=== PATIENT | female | born 2000 | race Caucasian/White ===

== ENCOUNTER 2020-08-02 16:12 | Emergency (ER) | payer OTHER ==
[2020-08-02] MEDS ORDERED: AMOXICILLIN 500 MG CAP PO STA (16:49)
[2020-08-02] MEDS ORDERED: dexAMETHasone 4 MG TAB PO STA (16:49)
--- NOTE | 2020-08-02 17:01 | ED ---
General Adult HPI - General Source: patient Mode of arrival: ambulatory Limitations: no limitations <Jimi Chew - Last Filed: 08/02/20 17:07> <Adelaide Guevara - Last Filed: 08/04/20 22:47> - General Chief complaint: ENT Stated complaint: ENT/Swelling in throat Time Seen by Provider: 08/02/20 16:32 - History of Present Illness Initial comments: 20-year-old female presents to the emergency room for a chief of sore throat. Patient states that for the past 5 days she has had a slight sore throat. States it is painful and difficult to swallow. She denies any difficulty handling oral secretions. She is able to eat and drink. She denies any difficulty opening her mouth. Denies fevers or chills. Denies neck stiffness or pain. States she does have congestion and a runny nose however denies cough. Patient saw her doctor earlier today who tested her for strep which was negative. A culture was sent which would take a few days according to patient. Patient was supposed to be started on antibiotics however these were apparently not sent to her pharmacy . Unfortunately the doctor's office closed at 1 pm and patient wanted to start on the antibiotics that she came to the emergency room. Patient denies any chance of whatsoever.Patient has no other complaints at this time including shortness of breath, chest pain, abdominal pain, nausea or vomiting, headache, or visual changes. (Jimi Chew) - Related Data Previous Rx's Medication Instructions Recorded Amoxicillin 500 mg PO Q12HR #20 cap 08/02/20 Allergies Allergy/AdvReac Type Severity Reaction Status Date / Time No Known Allergies Allergy Verified 08/02/20 16:31 Review of Systems ROS Other: All systems not noted in ROS Statement are negative. <Jimi Chew - Last Filed: 08/02/20 17:07> ROS Other: All systems not noted in ROS Statement are negative. <Adelaide Guevara - Last Filed: 08/04/20 22:47> ROS Statement: Those systems with pertinent positive or pertinent negative responses have been documented in the HPI. Past Medical History Past Medical History: No Reported History History of Any Multi-Drug Resistant Organisms: None Reported Past Surgical History: No Surgical Hx Reported Past Psychological History: No Psychological Hx Reported Smoking Status: Current every day smoker, Vaper Past Alcohol Use History: None Reported Past Drug Use History: Marijuana <Jimi Chew - Last Filed: 08/02/20 17:07> General Exam Limitations: no limitations General appearance: alert Head exam: Present: atraumatic Eye exam: Present: normal appearance, PERRL, EOMI. Absent: scleral icterus ENT exam: Present: normal exam, mucous membranes moist, TM's normal bilaterally, normal external ear exam. Absent: normal oropharynx (Slightly erythematous however no tonsillar exudates bilaterally. Uvula midline. No evidence of peritonsillar abscess. Oropharynx is patent.) Neck exam: Present: normal inspection, full ROM. Absent: tenderness, meningismus, lymphadenopathy Respiratory exam: Present: normal lung sounds bilaterally. Absent: respiratory distress Cardiovascular Exam: Present: regular rate, normal rhythm, normal heart sounds GI/Abdominal exam: Present: soft, normal bowel sounds. Absent: distended, tenderness, guarding, rebound, rigid Neurological exam: Present: alert <Jimi Chew - Last Filed: 08/02/20 17:07> Course Vital Signs 08/02/20 08/02/20 16:27 17:15 Temperature 98.6 F 98.0 F Pulse Rate 89 81 Respiratory 18 16 Rate Blood Pressure 106/60 116/78 O2 Sat by Pulse 100 98 Oximetry Medical Decision Making <Jimi Chew - Last Filed: 08/02/20 17:07> <Adelaide Guevara - Last Filed: 08/04/20 22:47> - Medical Decision Making Vitals are stable. Patient slightly anxious however is well-appearing. Handling oral secretions, no drooling trismus or tripoding. No respiratory distress. Patient able to swallow pills without difficulty. Uvula midline. Patient was given amoxicillin as well as a dose of Decadron. She will follow-up with her doctor for culture results. She will return here for any worsening symptoms. (Jimi Chew) I was available for consultation in the emergency department. The history and physical exam were done by the midlevel provider. I was consulted for this patients care. I reviewed the case with the midlevel provider and based on their presentation of the patient, I agree with the assessment, medical decision making and plan of care as documented. Chart was dictated using [employer] dictation software. Attempts were made to correct any dictation errors however some typographical errors may persist. Patient was seen during a national state of emergency due to the Covid-19 pandemic. (Adelaide Guevara) Disposition Is patient prescribed a controlled substance at d/c from ED?: No Time of Disposition: 17:00 <Jimi Chew - Last Filed: 08/02/20 17:07> <Adelaide Guevara - Last Filed: 08/04/20 22:47> Clinical Impression: Pharyngitis Disposition: HOME SELF-CARE Condition: Good Instructions (If sedation given, give patient instructions): Pharyngitis (ED) Additional Instructions: Please follow-up with your doctor in one to 2 days. In the meantime take antibiotic as directed. If you have any worsening symptoms return to the emergency room. Prescriptions: Amoxicillin 500 mg PO Q12HR #20 cap Referrals: Richard Marmolejo MD [Primary Care Provider] - 1-2 days
[2020-08-02 17:16] VITALS: BP 116/78; PULSE 81; RESP 16; TEMP 98
== END 2020-08-02 17:15 | disposition home or self-care (01) ==
LOC: EC 16:12
DX: J02.9 Acute pharyngitis, unspecified (principal); F17.290 Nicotine dependence, other tobacco product, uncomplicated
CPT/HCPCS: 99283; J8540

== ENCOUNTER 2020-08-05 06:41 | Emergency (ER) | payer OTHER ==
[2020-08-05 06:47] VITALS: BP 93/52; PULSE 94; RESP 18; TEMP 98.1
[2020-08-05] MEDS ORDERED: ACET/COD 300 MG/30 MG STARTER PACK 6 TAB BTL PO STA (06:56)
--- NOTE | 2020-08-05 07:04 | ED ---
Back Pain HPI - General Chief Complaint: Back Pain/Injury Stated Complaint: Back Pain Time Seen by Provider: 08/05/20 06:48 Source: patient, family Limitations: no limitations - History of Present Illness Initial Comments: 20-year-old female presenting today for chief complaint of low back pain. Patient states she has had chronic back pain since the sixth grade she states she states that it occurs everyday. pt statse that last night it was increased. she took ibuprofen 400mg and it seemed to help and she was able to go to sleep. this morning she wokeup and the back pain was still presesnt. mother states she has complained of back pain frequently but the patient recently has been signed up for medicaid. pt denies falls, injury, fevers, loss of bowel bladder control, urinary symptoms, nausae, vomiting, chest pain, dyspnea, denies loss of bowel bladder control, urinary retention, weakness of the LE, sensation deficits of the LE. Patient denies abdominal pain, . Pt denies urinary symptoms such as frequency, dysuria, or hematuria - Related Data Home Medications Medication Instructions Recorded Confirmed Ibuprofen [Advil] 400 mg PO Q8HR PRN 08/05/20 08/05/20 Ibuprofen [Motrin Ib] 400 mg PO Q8H PRN 08/05/20 08/05/20 Previous Rx's Medication Instructions Recorded Amoxicillin 500 mg PO Q12HR #20 cap 08/02/20 Ibuprofen 600 mg PO Q8H PRN 7 Days #21 tab 08/05/20 Allergies Allergy/AdvReac Type Severity Reaction Status Date / Time No Known Allergies Allergy Verified 08/05/20 07:23 Review of Systems ROS Statement: Those systems with pertinent positive or pertinent negative responses have been documented in the HPI. ROS Other: All systems not noted in ROS Statement are negative. Past Medical History Past Medical History: No Reported History History of Any Multi-Drug Resistant Organisms: None Reported Past Surgical History: No Surgical Hx Reported Past Psychological History: No Psychological Hx Reported Smoking Status: Current every day smoker, Vaper Past Alcohol Use History: None Reported Past Drug Use History: Marijuana General Exam - General Exam Comments Initial Comments: General: The patient is awake and alert, in no distress Eye: +3 mm pupils are equal, round and reactive to light, extra-ocular movements are intact. No nystagmus. There is normal conjunctiva bilaterally. No signs of icterus. Ears, nose, mouth and throat: There are moist mucous membranes and no oral lesions. Neck: The neck is supple, there is no tenderness or JVD. Cardiovascular: There is a regular rate and rhythm. No murmur, rub or gallop is appreciated. Respiratory: Lungs are clear to auscultation, respirations are non-labored, breath sounds are equal. No wheezes, stridor, rales, or rhonchi. Gastrointestinal: Soft, non-distended, non-tender abdomen without masses or organomegaly noted. There is no rebound or guarding present. No CVA tenderness. Musculoskeletal: Some mild midline tenderness to palpation of the lower thoracic, upper lumbar spine, some pareaspinal tenderness appreciated. Normal ROM, no tenderness. Strength 5/5. Sensation intact. Radial pulses equal bilaterally 2+. Neurological: A&O x 3. CN II-XII intact grossly, There are no obvious motor or sensory deficits. Coordination appears grossly intact. Speech is normal. Skin: Skin is warm and dry and no rashes or lesions are noted. Psychiatric: Cooperative, appropriate mood & affect, normal judgment. Limitations: no limitations Course Vital Signs 08/05/20 06:46 Temperature 98.1 F Pulse Rate 94 Respiratory 18 Rate Blood Pressure 93/52 O2 Sat by Pulse 100 Oximetry - Reevaluation(s) Reevaluation #1: pt refused blood work, i went in expressing importance of lab work. pt continued to refuse. 08/05/20 08:15 Medical Decision Making - Medical Decision Making Pt refused labs. pt afebrile. no known hx of cancer. UA contaminated. Abdominal pain benign, denies urinary symptoms. Denies hx of stones, no blood in urine. Culture pending. XR (-). Pt has reproducible pain to palpation on exam, consistent with MSK pain. Pt neurovascularly intact. Pt sleeping on reevaluation after toradol and the xanax. discussed with patient and mother importance of f/u for routine labs, MRI for chronic back pain. pt provided tylenol #3 starter pack and ibuprofen. recommend return for worsening symptoms. Dr Stephens agreeable to care plan. - Lab Data Lab Results 08/05/20 08/05/20 Range/Units 06:59 06:59 Urine Color Yellow Urine Appearance Cloudy H (Clear) Urine pH 8.5 H (5.0-8.0) Ur Specific [place] 1.022 (1.001-1.035) Urine Protein Trace H (Negative) Urine Glucose (UA) Negative (Negative) Urine Ketones Negative (Negative) Urine Blood Negative (Negative) Urine Nitrite Negative (Negative) Urine Bilirubin Negative (Negative) Urine Urobilinogen <2.0 (<2.0) mg/dL Ur Leukocyte Esterase Small H (Negative) Urine WBC 16 H (0-5) /hpf Ur Squamous Epith Cells 58 H (0-4) /hpf Urine Bacteria Rare H (None) /hpf Urine Mucus Rare H (None) /hpf Urine HCG, Qual Not Detected (Not Detectd) Disposition Clinical Impression: Low back pain Disposition: HOME SELF-CARE Condition: Good Instructions (If sedation given, give patient instructions): Acute Low Back Pain (ED), Chronic Back Pain (DC), Lower Back Exercises (ED) Additional Instructions: Please use medication as discussed. Please follow-up with family doctor in the next 2 days, recommend outpatient MRI and laboratory studies. Urine culture is pending. Please return to emergency room if the symptoms increase or worsen or for any other concerns. Prescriptions: Ibuprofen 600 mg PO Q8H PRN 7 Days #21 tab PRN Reason: Pain Is patient prescribed a controlled substance at d/c from ED?: No Referrals: Richard Marmolejo MD [Primary Care Provider] - 1-2 days Time of Disposition: 09:01
[2020-08-05 07:22] LABS: Appearance,Urine Cloudy (Clear); Bacteria,Urine Rare /hpf; Bilirubin,Urine Negative (Negative); Blood,Urine Negative (Negative); Color,Urine Yellow; Glucose,Urine (UA) Negative (Negative); Ketones,Urine Negative (Negative); Leukocyte Esterase,Urine Small (Negative); Mucus,Urine Rare /hpf; Nitrite,Urine Negative (Negative); PH, Urine 8.5 (5.0-8.0); Protein,Urine Trace (Negative); Specific Gravity,Urine 1.022 (1.001-1.035); Squamous Epithelial Cell,Urine 58 /hpf (0-4); Urobilinogen,Urine <2.0 mg/dL (<2.0); WBC,Urine 16 /hpf (0-5)
--- NOTE | 2020-08-05 07:50 | XR ---
EXAMINATION TYPE: XR lumbar spine 2 or 3V DATE OF EXAM: 08/05/2020 CLINICAL HISTORY: Low back pain for years TECHNIQUE: Frontal and lateral images of the lumbar spine are obtained. COMPARISON: None FINDINGS: There are 5 lumbar type vertebral bodies identified. The lumbar spine shows satisfactory alignment without evidence of acute fracture or dislocation. Vertebral body heights and disk space he ights are within normal limits. The overlying soft tissue appears unremarkable. IMPRESSION: As above.
--- NOTE | 2020-08-05 07:54 | XR ---
EXAMINATION TYPE: XR thoracic spine complete DATE OF EXAM: 08/05/2020 CLINICAL HISTORY: Mid back pain. TECHNIQUE: Frontal, lateral, and swimmer's view of thoracic spine are obtained. COMPARISON: None. FINDINGS: Thoracic spine show satisfactory alignment without evidence of acute fracture or dislocatio n. Vertebral body heights and disc space heights are preserved. Visualized ribs are intact bilateral ly. IMPRESSION: As above.
[2020-08-05] MEDS ORDERED: ALPRAZolam 0.5 MG TAB PO STA (08:15)
[2020-08-05] MEDS ORDERED: KETOROLAC 15 MG/ML 1 ML VIAL IM STA (08:15)
== END 2020-08-05 09:19 | disposition home or self-care (01) ==
LOC: EC 06:41
DX: G89.29 Other chronic pain (principal); M54.5 Low back pain; R10.9 Unspecified abdominal pain; F17.290 Nicotine dependence, other tobacco product, uncomplicated
CPT/HCPCS: 81001; 81025; 72072; 72100; 99283; 96372; J1885

== ENCOUNTER 2020-08-05 18:00 | Emergency (ER) | payer OTHER ==
[2020-08-05 18:19] VITALS: RESP 18
[2020-08-05] MEDS ORDERED: LORazepam 2 MG/ML INJ IV STA (19:33)
[2020-08-05] MEDS ORDERED: KETOROLAC 15 MG/ML 1 ML VIAL IVP STA (19:34)
[2020-08-05 20:03] LABS: Appearance,Urine Cloudy (Clear); Bacteria,Urine Rare /hpf; Bilirubin,Urine Negative (Negative); Blood,Urine Negative (Negative); Budding Yeast,Urine Occasional /hpf; Color,Urine Yellow; Glucose,Urine (UA) Negative (Negative); Ketones,Urine 1+ (Negative); Leukocyte Esterase,Urine Small (Negative); Mucus,Urine Few /hpf; Nitrite,Urine Negative (Negative); Protein,Urine 1+ (Negative); RBC,Urine 16 /hpf (0-5); Specific Gravity,Urine 1.034 (1.001-1.035); Squamous Epithelial Cell,Urine 45 /hpf (0-4); WBC,Urine 21 /hpf (0-5)
[2020-08-05 20:11] LABS: Basophils # (A) 0.1 k/uL (0-0.2); Basophils % (A) 1 %; Eosinophils # (A) 0.1 k/uL (0-0.7); Eosinophils % (A) 1 %; HCT 40.4 % (34.0-46.0); HGB 14.1 gm/dL (11.4-16.0); Lymphocytes # (A) 1.4 k/uL (1.0-4.8); Lymphocytes % (A) 20 %; MCH 30.1 pg (25.0-35.0); MCHC 34.9 g/dL (31.0-37.0); MCV 86.3 fL (80.0-100.0); Mean Platelet Volume 7.7; Monocytes # (A) 0.4 k/uL (0-1.0); Monocytes % (A) 6 %; Neutrophils % (A) 70 %; Platelet Count 219 k/uL (150-450); RBC 4.68 m/uL (3.80-5.40); RDW 12.1 % (11.5-15.5); WBC 7.2 k/uL (4.0-11.0)
[2020-08-05 20:15] LABS: Amphetamine Screen,Urine Not Detected (NotDetected); Barbiturate Screen,Urine Not Detected (NotDetected); Benzodiazepines Screen,Urine Detected (NotDetected); Cocaine Screen,Urine Not Detected (NotDetected); Methadone Screen, Urine Not Detected (NotDetected); Opiate Screen,Urine Detected (NotDetected); Oxycodone Screen, Urine Not Detected (NotDetected); Phencyclidine Screen,Urine Not Detected (NotDetected); Tricyclic Antidepressant,Urine Not Detected (NotDetected); Urn Cannabinoid Scrn Detected (NotDetected)
[2020-08-05 20:47] LABS: ALT 10 U/L (4-34); AST 17 U/L (14-36); African American GFR (CKD) >90 (>60 ml/min/1.73 sqM); Albumin 3.6 g/dL (3.5-5.0); Alkaline Phosphatase 49 U/L (38-126); Anion Gap 4 mmol/L; Blood Urea Nitrogen 9 mg/dL (7-17); Calcium 8.8 mg/dL (8.4-10.2); Carbon Dioxide 26 mmol/L (22-30); Chloride 110 mmol/L (98-107); Glucose 102 mg/dL (74-99); Non-African American GFR(CKD) >90 (>60 ml/min/1.73 sqM); Potassium 3.8 mmol/L (3.5-5.1); Sodium 140 mmol/L (137-145); Total Bilirubin 0.7 mg/dL (0.2-1.3); Total Protein 6.4 g/dL (6.3-8.2)
--- NOTE | 2020-08-05 20:56 | CT ---
EXAMINATION TYPE: CT lumbar spine wo con DATE OF EXAM: 08/05/2020 COMPARISON: None HISTORY: Low back pain, no injury. CT DLP: 564.9 mGycm Automated exposure control for dose reduction was used. Images obtained from the level of T11-S2 vertebra without contrast. Lumbar vertebra have normal alignment. Disc spaces are fairly normal. Posterior elements are intact. There is no lumbar paraspinal mass. There is no compression fracture. The facet joints are intact. Th e sacroiliac joints are intact. IMPRESSION: Negative CT scan of the lumbar spine. No fracture.
[2020-08-05 21:47] VITALS: BP 110/54; PULSE 59
--- NOTE | 2020-08-05 22:04 | ED ---
General Adult HPI - General Chief complaint: Back Pain/Injury Stated complaint: revisit - back pain Time Seen by Provider: 08/05/20 19:28 Source: patient Mode of arrival: ambulatory Limitations: no limitations - History of Present Illness Initial comments: Patient is a 20-year-old female presenting to the emergency Department with complaints of low back pain that has been increasing over the past 2 days. Patient states she's had this pain for one year and "can no longer stand it." Patient was seen in the ER earlier today for same issue. Patient refused lab work then, she did have normal x-rays, given pain meds and was told this is muscle skeletal in nature. Patient states she went to a chiropractor and came back and is her pain is even worse. Patient is crying out, was laying in the floor in the triage [place], seems very anxious and panicky. She denies any fever or chills, no nausea or vomiting. No abdominal pain, she denies being . She denies any falls or trauma to her back. She denies history of kidney stones. She has no further complaints. - Related Data Previous Rx's Medication Instructions Recorded Amoxicillin 500 mg PO Q12HR #20 cap 08/02/20 Ibuprofen 600 mg PO Q8H PRN 7 Days #21 tab 08/05/20 Allergies Allergy/AdvReac Type Severity Reaction Status Date / Time No Known Allergies Allergy Verified 08/05/20 20:44 Review of Systems ROS Statement: Those systems with pertinent positive or pertinent negative responses have been documented in the HPI. ROS Other: All systems not noted in ROS Statement are negative. Past Medical History Past Medical History: No Reported History History of Any Multi-Drug Resistant Organisms: None Reported Past Surgical History: No Surgical Hx Reported Past Psychological History: No Psychological Hx Reported Smoking Status: Current every day smoker, Vaper Past Alcohol Use History: None Reported Past Drug Use History: Marijuana General Exam - General Exam Comments Initial Comments: GENERAL: Patient is nontoxic, seems very anxious, panicky, screaming out in her room, but then has periods of calm numbness, walking on her own to the restroom. HEAD: Atraumatic, normocephalic. EYES: Pupils equal round and reactive to light, extraocular movements intact, sclera anicteric, conjunctiva are normal. Eyelids were unremarkable. ENT: TMs normal, nares patent, oropharynx clear without exudates. Moist mucous membranes. NECK: Normal range of motion, supple without lymphadenopathy or JVD. LUNGS: Unlabored respirations. Breath sounds clear to auscultation bilaterally and equal. No wheezes rales or rhonchi. HEART: Regular rate and rhythm without murmurs, rubs or gallops. ABDOMEN: Soft, nontender, normoactive bowel sounds. No guarding, no rebound. No masses appreciated. : Deferred MUSCULOSKELETAL: Normal extremities with adequate strength and normal range of motion, no pitting or edema. No clubbing or cyanosis. She has no pain with palpation of the lower lumbar spine, paraspinals. She has full trunk range of motion. NEUROLOGICAL: Patient is alert and oriented x 3. Motor and sensory are also intact. Cranial nerves II through XII grossly intact. Symmetrical smile. Normal speech, normal gait. PSYCH: She seems very anxious, panicky. SKIN: Warm, Dry, normal turgor, no rashes or lesions noted. Limitations: no limitations Course Vital Signs 08/05/20 08/05/20 08/05/20 18:14 21:39 22:28 Temperature 97.7 F 98.2 F 97.9 F Pulse Rate 82 59 L Respiratory 18 18 Rate Blood Pressure 102/63 110/54 O2 Sat by Pulse 99 100 Oximetry Medical Decision Making - Medical Decision Making Patient is a 20-year-old female here for low back pain. She was here earlier today for same complaint. X-rays today showed no acute process, she refused blood work this morning. I did do labwork this time, no acute process, urine drug screen is positive for opiates, benzos and marijuana. She did receive Ativan at her previous visit. She is not . I do CT of her lumbar spine, this is negative. Patient has been crying all pain since she's been here. I gave her Ativan and Toradol today. She was resting comfortably. Patient seems depressed and very anxious and panicky. Patient was witnessed walking to restroom in no acute distress, interacting with other patients and seemed pain-free. Discussed with mother that she needs to follow up with her regular doctor concerning the depression and anxiety and also the continuous low back pain. Patient denies being suicidal or homicidal. She states she is depressed but does not want to speak to his psychiatric nurse. She already has pain medication at home. She can continue with this along with Tylenol. I did recommend Benadryl at nighttime to help with sleeping. Patient is stable for discharge. Return parameters were discussed with the mother and the patient both verbalized understanding. Case discussed Dr. Pacheco. - Lab Data Result diagrams: 08/05/20 20:03 08/05/20 20:03 Lab Results 08/05/20 08/05/20 08/05/20 Range/Units 19:55 19:55 20:03 WBC 7.2 (4.0-11.0) k/uL RBC 4.68 (3.80-5.40) m/uL Hgb 14.1 (11.4-16.0) gm/dL Hct 40.4 (34.0-46.0) % MCV 86.3 (80.0-100.0) fL MCH 30.1 (25.0-35.0) pg MCHC 34.9 (31.0-37.0) g/dL RDW 12.1 (11.5-15.5) % Plt Count 219 (150-450) k/uL MPV 7.7 Neutrophils % 70 % Lymphocytes % 20 % Monocytes % 6 % Eosinophils % 1 % Basophils % 1 % Neutrophils # 5.0 (1.3-7.7) k/uL Lymphocytes # 1.4 (1.0-4.8) k/uL Monocytes # 0.4 (0-1.0) k/uL Eosinophils # 0.1 (0-0.7) k/uL Basophils # 0.1 (0-0.2) k/uL Sodium (137-145) mmol/L Potassium (3.5-5.1) mmol/L Chloride (98-107) mmol/L Carbon Dioxide (22-30) mmol/L Anion Gap mmol/L BUN (7-17) mg/dL Creatinine (0.52-1.04) mg/dL Est GFR (CKD-EPI)AfAm (>60 ml/min/1.73 sqM) Est GFR (CKD-EPI)NonAf (>60 ml/min/1.73 sqM) Glucose (74-99) mg/dL Calcium (8.4-10.2) mg/dL Total Bilirubin (0.2-1.3) mg/dL AST (14-36) U/L ALT (4-34) U/L Alkaline Phosphatase (38-126) U/L Total Protein (6.3-8.2) g/dL Albumin (3.5-5.0) g/dL Urine Color Yellow Urine Appearance Cloudy H (Clear) Urine pH 8.0 (5.0-8.0) Ur Specific [place] 1.034 (1.001-1.035) Urine Protein 1+ H (Negative) Urine Glucose (UA) Negative (Negative) Urine Ketones 1+ H (Negative) Urine Blood Negative (Negative) Urine Nitrite Negative (Negative) Urine Bilirubin Negative (Negative) Urine Urobilinogen 4.0 (<2.0) mg/dL Ur Leukocyte Esterase Small H (Negative) Urine RBC 16 H (0-5) /hpf Urine WBC 21 H (0-5) /hpf Ur Squamous Epith Cells 45 H (0-4) /hpf Urine Bacteria Rare H (None) /hpf Urine Mucus Few H (None) /hpf Urine Yeast (Budding) Occasional H (None) /hpf Urine HCG, Qual Not Detected (Not Detectd) Urine Opiates Screen Detected H (NotDetected) Ur Oxycodone Screen Not Detected (NotDetected) Urine Methadone Screen Not Detected (NotDetected) Ur Propoxyphene Screen Not Detected (NotDetected) Ur Barbiturates Screen Not Detected (NotDetected) U Tricyclic Antidepress Not Detected (NotDetected) Ur Phencyclidine Scrn Not Detected (NotDetected) Ur Amphetamines Screen Not Detected (NotDetected) U Methamphetamines Scrn Not Detected (NotDetected) U Benzodiazepines Scrn Detected H (NotDetected) Urine Cocaine Screen Not Detected (NotDetected) U Marijuana (THC) Screen Detected H (NotDetected) 08/05/20 Range/Units 20:03 WBC (4.0-11.0) k/uL RBC (3.80-5.40) m/uL Hgb (11.4-16.0) gm/dL Hct (34.0-46.0) % MCV (80.0-100.0) fL MCH (25.0-35.0) pg MCHC (31.0-37.0) g/dL RDW (11.5-15.5) % Plt Count (150-450) k/uL MPV Neutrophils % % Lymphocytes % % Monocytes % % Eosinophils % % Basophils % % Neutrophils # (1.3-7.7) k/uL Lymphocytes # (1.0-4.8) k/uL Monocytes # (0-1.0) k/uL Eosinophils # (0-0.7) k/uL Basophils # (0-0.2) k/uL Sodium 140 (137-145) mmol/L Potassium 3.8 (3.5-5.1) mmol/L Chloride 110 H (98-107) mmol/L Carbon Dioxide 26 (22-30) mmol/L Anion Gap 4 mmol/L BUN 9 (7-17) mg/dL Creatinine 0.62 (0.52-1.04) mg/dL Est GFR (CKD-EPI)AfAm >90 (>60 ml/min/1.73 sqM) Est GFR (CKD-EPI)NonAf >90 (>60 ml/min/1.73 sqM) Glucose 102 H (74-99) mg/dL Calcium 8.8 (8.4-10.2) mg/dL Total Bilirubin 0.7 (0.2-1.3) mg/dL AST 17 (14-36) U/L ALT 10 (4-34) U/L Alkaline Phosphatase 49 (38-126) U/L Total Protein 6.4 (6.3-8.2) g/dL Albumin 3.6 (3.5-5.0) g/dL Urine Color Urine Appearance (Clear) Urine pH (5.0-8.0) Ur Specific [place] (1.001-1.035) Urine Protein (Negative) Urine Glucose (UA) (Negative) Urine Ketones (Negative) Urine Blood (Negative) Urine Nitrite (Negative) Urine Bilirubin (Negative) Urine Urobilinogen (<2.0) mg/dL Ur Leukocyte Esterase (Negative) Urine RBC (0-5) /hpf Urine WBC (0-5) /hpf Ur Squamous Epith Cells (0-4) /hpf Urine Bacteria (None) /hpf Urine Mucus (None) /hpf Urine Yeast (Budding) (None) /hpf Urine HCG, Qual (Not Detectd) Urine Opiates Screen (NotDetected) Ur Oxycodone Screen (NotDetected) Urine Methadone Screen (NotDetected) Ur Propoxyphene Screen (NotDetected) Ur Barbiturates Screen (NotDetected) U Tricyclic Antidepress (NotDetected) Ur Phencyclidine Scrn (NotDetected) Ur Amphetamines Screen (NotDetected) U Methamphetamines Scrn (NotDetected) U Benzodiazepines Scrn (NotDetected) Urine Cocaine Screen (NotDetected) U Marijuana (THC) Screen (NotDetected) Disposition Clinical Impression: Low back pain, Anxiety Disposition: HOME SELF-CARE Condition: Stable Instructions (If sedation given, give patient instructions): Chronic Back Pain (DC) Additional Instructions: Please return to the Emergency Department if symptoms worsen or any other concerns. May take Tylenol or ibuprofen for discomfort. Please follow-up with your regular doctor concerning anxiety/depression as well as the chronic back pain. Is patient prescribed a controlled substance at d/c from ED?: No Referrals: Richard Marmolejo MD [Primary Care Provider] - 1-2 days
[2020-08-05 22:32] VITALS: TEMP 97.9
== END 2020-08-05 22:32 | disposition home or self-care (01) ==
LOC: EC 18:00
DX: M54.5 Low back pain (principal); F41.9 Anxiety disorder, unspecified; F32.9 Major depressive disorder, single episode, unspecified; F17.290 Nicotine dependence, other tobacco product, uncomplicated
CPT/HCPCS: 36415; 80053; 85025; 81001; 81025; 80306; 87086; 72131; 99284; 96374; 96375; J2060; J1885

== ENCOUNTER 2023-04-23 14:45 | Emergency (ER) | payer OTHER ==
--- NOTE | 2023-04-23 15:40 | ED ---
URI HPI - General Source: patient, RN notes reviewed Mode of arrival: ambulatory Limitations: no limitations <Sheri Dejesus - Last Filed: 04/23/23 15:40> <Navjot Crespo - Last Filed: 04/24/23 00:43> - General Chief Complaint: Upper Respiratory Infection Stated Complaint: sob Time Seen by Provider: 04/23/23 15:37 - History of Present Illness Initial Comments: This is a 23 year old female who presents to the emergency department for coughing, fevers, and chest pain. Shortly before arrival, she developed sharp and right sided rib pain when taking deep breaths. Patient tearful and very worked up in triage. (Sheri Dejesus) 22-year-old female presenting with chief complaint of rib pain. Patient states that the last few days she has had a cough, congestion, and fever. She states that today she developed sharp right-sided rib pain that is worse with coughing or deep breathing. She has not been taking anything for her pain or fever management. No shortness of breath. No hemoptysis, nausea, vomiting, abdominal pain, palpitations, lower extremity swelling, oral contraceptives, recent surgery or travel (Navjot Crespo) - Related Data Previous Rx's Medication Instructions Recorded Amoxicillin 500 mg PO Q12HR #20 cap 08/02/20 Ibuprofen 600 mg PO Q8H PRN 7 Days #21 tab 08/05/20 Azithromycin [Zithromax Z Pack] 1 tab PO DIRECTED #6 tab 04/24/23 Allergies Allergy/AdvReac Type Severity Reaction Status Date / Time No Known Allergies Allergy Verified 08/05/20 20:44 Review of Systems ROS Other: All systems not noted in ROS Statement are negative. <Sheri Dejesus - Last Filed: 04/23/23 15:40> ROS Other: All systems not noted in ROS Statement are negative. <Navjot Crespo - Last Filed: 04/24/23 00:43> ROS Statement: Those systems with pertinent positive or pertinent negative responses have been documented in the HPI. Past Medical History Past Medical History: No Reported History History of Any Multi-Drug Resistant Organisms: None Reported Past Surgical History: No Surgical Hx Reported Past Psychological History: No Psychological Hx Reported Smoking Status: Current every day smoker, Vaper Past Alcohol Use History: None Reported Past Drug Use History: Marijuana <Sheri Dejesus - Last Filed: 04/23/23 15:40> General Exam Limitations: no limitations <Sheri Dejesus - Last Filed: 04/23/23 15:40> Limitations: no limitations General appearance: alert, in no apparent distress Head exam: Present: atraumatic, normocephalic, normal inspection Eye exam: Present: normal appearance, EOMI Neck exam: Present: normal inspection, full ROM Respiratory exam: Present: normal lung sounds bilaterally, chest wall tenderne ss. Absent: respiratory distress, wheezes, rales, rhonchi, stridor Cardiovascular Exam: Present: regular rate, normal rhythm, normal heart sounds. Absent: systolic murmur, diastolic murmur, rubs, gallop, clicks Neurological exam: Present: alert, oriented X3 Psychiatric exam: Present: normal affect, normal mood Skin exam: Present: warm, dry, intact, normal color. Absent: rash <Navjot Crespo - Last Filed: 04/24/23 00:43> - General Exam Comments Initial Comments: Visual Physical Exam Vital signs reviewed General: In distress Head: Normocephalic, atraumatic Eyes: PERRLA, EOMI ENT: Airway patent Chest: Nonlabored breathing Skin: No visual rash, normal skin tone Neuro: Alert and oriented 3 Musculoskeletal: No gross abnormalities I performed the QuickNote portion of this chart. Signed Sheri Dejesus PA-C. (Sheri Dejesus) Course Vital Signs 04/23/23 04/23/23 04/23/23 15:06 17:04 17:56 Temperature 102.6 F H 103.5 F H Pulse Rate 110 H 96 Respiratory 20 20 20 Rate Blood Pressure 99/66 110/72 O2 Sat by Pulse 98 96 Oximetry 04/23/23 18:41 Temperature 99.5 F Pulse Rate 84 Respiratory 18 Rate Blood Pressure 95/57 O2 Sat by Pulse 95 Oximetry Medical Decision Making <Navjot Crespo - Last Filed: 04/24/23 00:43> - Medical Decision Making Was pt. sent in by a medical professional or institution (SARAH Vidal, [facility], urgent care, hospital, or usp...) When possible be specific @ -No Did you speak to anyone other than the patient for history (EMS, parent, family, police, friend...)? What history was obtained from this source @ -No Did you review nursing and triage notes (agree or disagree)? Why? @ -I reviewed and agree with nursing and triage notes Were old charts reviewed (outside hosp., previous admission, EMS record, old EKG, old radiological studies, urgent care reports/EKG's, usp records)? Report findings @ -No old charts were reviewed Differential Diagnosis (chest pain, altered mental status, abdominal pain women, abdominal pain men, vaginal bleeding, weakness, fever, dyspnea, syncope, headache, dizziness, GI bleed, back pain, seizure, CVA, palpatations, mental health, musculoskeletal)? Differential includes pneumonia, pneumothorax, musculoskeletal strain, pulmonary embolism, this is not an all inclusive list EKG interpreted by me (3pts min.). @ -Sinus rhythm ventricular rate 84. [place] interval 147. QRS 93. QT 360. QTc 402. X-rays interpreted by me (1pt min.). @ -Chest x-ray consistent with right upper lobe pneumonia CT interpreted by me (1pt min.). @ -None done U/S interpreted by me (1pt. min.). @ -None done What testing was considered but not performed or refused? (CT, X-rays, U/S, labs)? Why? @ -None What meds were considered but not given or refused? Why? @ -None Did you discuss the management of the patient with other professionals (professionals i.e. , PA, RICE D[employer]ER, lab, RT, psych nurse, social service technician, director quality assurance, teacher, giving officer, pillowcase cutter)? Give summary @ -No Was smoking cessation discussed for >3mins.? @ -No Was critical care preformed (if so, how long)? @ -No Were there social determinants of health that impacted care today? How? (Homelessness, low income, unemployed, alcoholism, drug addiction, transportation, low edu. Level, literacy, decrease access to med. care, retirement, rehab)? @ -No Was there de-escalation of care discussed even if they declined (Discuss DNR or withdrawal of care, Hospice)? DNR status @ -No What co-morbidities impacted this encounter? (DM, HTN, Smoking, COPD, CAD, Cancer, CVA, ARF, Chemo, Hep., AIDS, mental health diagnosis, sleep apnea, morbid obesity)? @ -None Was patient admitted / discharged? Hospital course, mention meds given and route, prescriptions, significant lab abnormalities, going to OR and other pertinent info. @ -23-year-old female presenting with chief complaint of right-sided rib pain. Patient has been experiencing cough, congestion, fevers for several days. Physical examination is conducted. No lower extremity edema. Heart and lungs are clear to auscultation. Chest x-ray consistent with right upper lobe pneumonia. She is negative for influenza, RSV, and Covid. Patient was initially tachycardic secondary to fever, she was given Motrin and Tylenol, vital signs improved. After Motrin and Tylenol patient is PERC negative. She'll be treated for pneumonia with azithromycin. Follow-up with PCP. Report b ack to ER with any new or worsening symptoms. Discussed return parameters and answered all questions. Patient conveyed verbal understanding and agreed to the plan. I discussed this case in detail with my attending Dr. Stephens Undiagnosed new problem with uncertain prognosis? @ -No Drug Therapy requiring intensive monitoring for toxicity (Heparin, Nitro, Insulin, Cardizem)? @ -No Were any procedures done? @ -No Diagnosis/symptom? @ -Pneumonia Acute, or Chronic, or Acute on Chronic? @ -Acute Uncomplicated (without systemic symptoms) or Complicated (systemic symptoms)? @ -Uncomplicated Side effects of treatment? @ -No Exacerbation, Progression, or Severe Exacerbation? @ -No Poses a threat to life or bodily function? How? (Chest pain, [place], [place], pneumonia, PE, COPD, DKA, ARF, appy, cholecystitis, CVA, Diverticulitis, Homicidal, Suicidal, threat to staff... and all critical care pts) @ -Low likelihood (Navjot Crespo) - Lab Data Lab Results 04/23/23 Range/Units 17:15 Influenza Type A (PCR) Not Detected (Not Detectd) Influenza Type B (PCR) Not Detected (Not Detectd) RSV (PCR) Not Detected (Not Detectd) SARS-CoV-2 (PCR) Not Detected (Not Detectd) Disposition <Sheri Dejesus - Last Filed: 04/23/23 15:40> Is patient prescribed a controlled substance at d/c from ED?: No Time of Disposition: 18:29 <Navjot Crespo - Last Filed: 04/24/23 00:43> Clinical Impression: Pneumonia Disposition: HOME SELF-CARE Condition: Good Instructions (If sedation given, give patient instructions): Community Acquired Pneumonia (ED) Additional Instructions: Follow-up with PCP. Report back to ER with any new or worsening symptoms. Take Motrin and Tylenol as needed for fever and pain control. Prescriptions: Azithromycin [Zithromax Z Pack] 1 tab PO DIRECTED #6 tab Referrals: Richard Marmolejo MD [REFERRING] - 1-2 days
--- NOTE | 2023-04-23 15:46 | XR ---
EXAMINATION TYPE: XR chest 2V DATE OF EXAM: 04/23/2023 COMPARISON: NONE HISTORY: Shortness of breath and cough TECHNIQUE: Frontal and lateral views of the chest are obtained. FINDINGS: There is a small focal partially consolidative opacity right upper lobe most consistent with a pneumo nathalia infiltrate. There is no pleural effusion or pneumothorax. The heart and pulmonary vasculature are normal. The osseous structures are intact. IMPRESSION: Findings most consistent with acute right upper lobe pneumonia. IMPRESSION: No acute cardiopulmonary process.
[2023-04-23] MEDS ORDERED: IBUPROFEN 800 MG TAB PO STA (17:08)
[2023-04-23] MEDS ORDERED: ACETAMINOPHEN TAB 500 MG TAB PO STA (17:08)
[2023-04-23 18:58] VITALS: BP 95/57; PULSE 84; RESP 18; TEMP 99.5
== END 2023-04-23 18:46 | disposition home or self-care (01) ==
LOC: EC 14:45
DX: J18.9 Pneumonia, unspecified organism (principal); F17.290 Nicotine dependence, other tobacco product, uncomplicated; F12.90 Cannabis use, unspecified, uncomplicated
CPT/HCPCS: 71046; 87636; 93005; 99285

== ENCOUNTER 2023-04-26 17:19 | Emergency (ER) | payer OTHER ==
[2023-04-26] MEDS ORDERED: ONDANSETRON 4 MG ODT STARTER PACK 2 TAB BTL PO STA (18:45)
--- NOTE | 2023-04-26 18:45 | ED ---
General Adult HPI - General Chief complaint: Nausea/Vomiting/Diarrhea Stated complaint: Vomiting Time Seen by Provider: 04/26/23 18:30 Source: patient, RN notes reviewed, old records reviewed Mode of arrival: ambulatory - History of Present Illness Initial comments: This is a 23-year-old female presents emergency department she has been recently diagnosed with pneumonia. Patient states antibiotics are making her nauseated and vomiting. Patient comes in requesting something for the vomiting. Patient denies any abdominal pain. Patient denies any back pain. Patient denies any fever chills per patient states she has a little bit of right-sided chest pain as she did the other day when she was diagnosed with pneumonia. Patient states she only has 2 days of antibiotic left. Patient's denying any shortness of breath at this time and any worsening symptoms. - Related Data Previous Rx's Medication Instructions Recorded Amoxicillin 500 mg PO Q12HR #20 cap 08/02/20 Ibuprofen 600 mg PO Q8H PRN 7 Days #21 tab 08/05/20 Azithromycin [Zithromax Z Pack] 1 tab PO DIRECTED #6 tab 04/24/23 Ondansetron [Zofran] 4 mg PO Q8HR PRN #10 tab 04/26/23 Allergies Allergy/AdvReac Type Severity Reaction Status Date / Time No Known Allergies Allergy Verified 04/26/23 18:35 Review of Systems ROS Statement: Those systems with pertinent positive or pertinent negative responses have been documented in the HPI. ROS Other: All systems not noted in ROS Statement are negative. Past Medical History Past Medical History: No Reported History History of Any Multi-Drug Resistant Organisms: None Reported Past Surgical History: No Surgical Hx Reported Past Psychological History: No Psychological Hx Reported Smoking Status: Current every day smoker, Vaper Past Alcohol Use History: None Reported Past Drug Use History: Marijuana General Exam - General Exam Comments Initial Comments: GENERAL: Patient is well-developed and well-nourished. Patient is nontoxic and well-hyd rated and is in mild distress. ENT: Neck is soft and supple. No significant lymphadenopathy is noted. Oropharynx is clear. Moist mucous membranes. EYES: The sclera were anicteric and conjunctiva were pink and moist. Extraocular movements were intact and pupils were equal round and reactive to light. Eyelids were unremarkable. ABDOMEN: Soft and nontender with normal bowel sounds. SKIN: Skin is clear with no lesions or rashes and otherwise unremarkable. NEUROLOGIC: Patient is alert and oriented x3. Cranial nerves II through XII are grossly intact. Motor and sensory are also intact. Normal speech, volume and content. Symmetrical smile. MUSCULOSKELETAL: Normal extremities with adequate strength and full range of motion. PSYCHIATRIC: Normal psychiatric evaluation. Course Vital Signs 04/26/23 18:30 Temperature 98.5 F Pulse Rate 86 Respiratory 18 Rate Blood Pressure 111/65 O2 Sat by Pulse 99 Oximetry Medical Decision Making - Medical Decision Making Was pt. sent in by a medical professional or institution (, SARAH, SLIDE FORMING MACHINE OPERATOR, urgent care, hospital, or long term...) When possible be specific @ -No Did you speak to anyone other than the patient for history (EMS, parent, family, police, friend...)? What history was obtained from this source @ -No Did you review nursing and triage notes (agree or disagree)? Why? @ -I reviewed and agree with nursing and triage notes Were old charts reviewed (outside hosp., previous admission, EMS record, old EKG, old radiological studies, urgent care reports/EKG's, long term records)? Report findings @ -No old charts were reviewed Differential Diagnosis (chest pain, altered mental status, abdominal pain women, abdominal pain men, vaginal bleeding, weakness, fever, dyspnea, syncope, headache, dizziness, GI bleed, back pain, seizure, CVA, palpatations, mental health, musculoskeletal)? @ -not applicable EKG interpreted by me (3pts min.). @ -As above X-rays interpreted by me (1pt min.). @ -None done CT interpreted by me (1pt min.). @ -None done U/S interpreted by me (1pt. min.). @ -None done What testing was considered but not performed or refused? (CT, X-rays, U/S, labs)? Why? @ -None What meds were considered but not given or refused? Why? @ -None Did you discuss the management of the patient with other professionals (professionals i.e. SARAH Vidal, SLIDE FORMING MACHINE OPERATOR, lab, RT, psych nurse, executive secretary social welfare, visual merchandising associate, teacher, county records management officer, caseworker intake)? Give summary @ -No Was smoking cessation discussed for >3mins.? @ -No Was critical care preformed (if so, how long)? @ -No Were there social determinants of health that impacted care today? How? (Homelessness, low income, unemployed, alcoholism, drug addiction, transportation, low edu. Level, literacy, decrease access to med. care, skilled nursing, rehab)? @ -No Was there de-escalation of care discussed even if they declined (Discuss DNR or withdrawal of care, Hospice)? DNR status @ -No What co-morbidities impacted this encounter? (DM, HTN, Smoking, COPD, CAD, Cancer, CVA, ARF, Chemo, Hep., AIDS, mental health diagnosis, sleep apnea, mor bid obesity)? @ -None Was patient admitted / discharged? Hospital course, mention meds given and route, prescriptions, significant lab abnormalities, going to OR and other pertinent info. @ -Did not want any further workup other than to get some medicine for her nausea and vomiting. Patient was given a take-home pack of Zofran. Undiagnosed new problem with uncertain prognosis? @ -No Drug Therapy requiring intensive monitoring for toxicity (Heparin, Nitro, Insulin, Cardizem)? @ -No Were any procedures done? @ -No Diagnosis/symptom? @ -Vomiting Acute, or Chronic, or Acute on Chronic? @ -Acute Uncomplicated (without systemic symptoms) or Complicated (systemic symptoms)? @ -Uncomplicated Side effects of treatment? @ -No Exacerbation, Progression, or Severe Exacerbation? @ -No Poses a threat to life or bodily function? How? (Chest pain, [place], [place], pneumonia, PE, COPD, DKA, ARF, appy, cholecystitis, CVA, Diverticulitis, Homicidal, Suicidal, threat to staff... and all critical care pts) @ -No Disposition Clinical Impression: Acute vomiting Disposition: HOME SELF-CARE Instructions (If sedation given, give patient instructions): Acute Nausea and Vomiting (ED) Prescriptions: Ondansetron [Zofran] 4 mg PO Q8HR PRN #10 tab PRN Reason: Nausea And Vomiting Is patient prescribed a controlled substance at d/c from ED?: No Referrals: Ramon Rodríguez MD [Primary Care Provider] - 1-2 days Time of Disposition: 18:44
[2023-04-26 19:03] VITALS: BP 111/65; PULSE 86; RESP 18; TEMP 98.5
== END 2023-04-26 19:00 | disposition home or self-care (01) ==
LOC: EC 17:19
DX: R11.2 Nausea with vomiting, unspecified (principal); F17.290 Nicotine dependence, other tobacco product, uncomplicated; F12.90 Cannabis use, unspecified, uncomplicated
CPT/HCPCS: 99283; S0119

== ENCOUNTER 2025-01-24 04:08 | Observation (INO) | payer OTHER ==
--- NOTE | 2025-01-24 05:22 | P.HPOB ---
History of Present Illness H&P Date: 01/24/25 Chief Complaint: Approximately 19 weeks gestation, loss The patient is a 24-year-old 1 para 0 who presented initially to [facility] complaining of significant pelvic cramping. In the emergency room she was found with a leg protruding from the vagina and was delivered of a nonviable female infant. I was called at that time at which time the patient was transferred to [facility] and brought to labor and delivery with the placenta still in utero. I presented shortly thereafter at which time the placenta was delivered intact without any significant bleeding and no obvious abnormalities. On questioning, the patient reports that she had a small amount of cramping but mostly felt pressure at which time she then had a gush of fluid and some acute vaginal bleeding prompting her trip to the emergency room. She denies any history of contractions. She has been seen in the office and has had no problems and all labs are normal. Obstetrical history: 1 para 0 with current statistics listed in history of present illness. EDC of 06/18/2025 was established by an 11-week ultrasound. Laboratory workup demonstrates a blood type of B- with a negative antibody screen. Rubella status is immune. The remainder of the laboratory workup including cultures were negative. She did decline fraction testing. Gynecologic history: Unremarkable with no history of any infections to include STDs. Review of Systems Review of systems is confined to history of present illness. Past Medical History Past Medical History: No Reported History History of Any Multi-Drug Resistant Organisms: None Reported Past Surgical History: No Surgical Hx Reported Past Psychological History: No Psychological Hx Reported Smoking Status: Current every day smoker, Vaper Past Alcohol Use History: None Reported Past Drug Use History: Marijuana Medications and Allergies Home Medications Medication Instructions Recorded Confirmed Type Vit No.179/Iron/Folic 1 tab PO DAILY 01/24/25 01/24/25 History [ Tablet] Allergies Allergy/AdvReac Type Severity Reaction Status Date / Time No Known Allergies Allergy Verified 01/24/25 04:22 Exam Vital Signs Temp Pulse Resp BP 01/24/25 04:23 97.8 F 78 16 108/51 Intake and Output 01/23/25 01/23/25 01/24/25 14:59 22:59 06:59 Other: Weight 58.967 kg In general, this is a well-developed, well-nourished white female in no acute distress though she is grieving appropriately. Her heart has a regular rhythm and rate without murmur. Her lungs clear to auscultation bilateral in all wright. Abdomen is nondistended, has normal active bowel sounds, soft, nontende r, and without any palpable masses aside from an appropriately sized uterine fundus after delivery of the placenta well below the umbilicus. Her extremities are without any cyanosis, clubbing, or edema and are nontender to palpation. Pelvic examination was limited to extraction of the placenta spontaneously with no evidence of any cervical abnormalities were ongoing vaginal bleeding. Assessment and Plan (1) 19 weeks gestation of Current Visit: Yes Status: Acute Code(s): Z3A.19 - 19 WEEKS GESTATION OF SNOMED Code(s): 10853798 (2) Spontaneous miscarriage Current Visit: Yes Status: Acute Code(s): O03.9 - COMPLETE OR UNSP SPONTANEOUS WITHOUT COMPLICATION SNOMED Code(s): 11564189 Plan: The patient is admitted having spontaneously delivered a nonviable fetus. The placenta has been delivered. The history indicates no obvious issues and there is a strong suspicion for the possibility of cervical incompetence given the presentation. She will be monitored for period of time and then discharged to home to follow-up in the office in approximately 2 weeks. The placenta will be sent for pathological evaluation. There is a strong case for maternal- medicine consultation prior to another attempted . There are no obvious indications for this loss at this time.
--- NOTE | 2025-01-24 05:25 | P.PROBDLV ---
Vaginal Delivery Note - . Vaginal Delivery Note: Date of delivery/service: 01/24/2025 As noted in history of present illness, this is a 24-year-old 1 para 0 admitted at roughly 19 weeks of gestation by good dating parameters. She is admitted having had spontaneous miscarriage and delivered in the emergency room at [facility]. She delivered a nonviable female fetus, weight not currently available. She presented to our labor and delivery unit with the placenta still in utero. I presented and noted the placenta to be in the cervix and it was delivered intact with no obvious abnormalities with gentle traction and maternal effort with pushing. There were no lacerations of the cervix or pe rineum. Examination of the fetus demonstrates no obvious abnormalities, no evidence of any potential chromosomal abnormalities. Estimated blood loss at the time of my arrival is less than 50 mL. There were no complications aside from the loss.
--- NOTE | 2025-01-24 05:31 | P.DS ---
Providers Date of admission: 01/24/25 04:08 Expected date of discharge: 01/24/25 Attending physician: Checo Chavez Primary care physician: Stated None - Discharge Diagnosis(es) (1) 19 weeks gestation of Current Visit: Yes Status: Acute (2) Spontaneous miscarriage Current Visit: Yes Status: Acute Hospital Course: The patient is a 24-year-old 1 para 0 who initially presented to [facility] with complaints of pressure and lower abdominal cramping having had a gush of fluid at home followed by some acute bleeding. She was found with parts in the vagina and delivered a nonviable fetus and was subsequently transferred to [facility] with the placenta still in utero. She was delivered of the placenta without difficulty. Discussion of the situation preceding delivery demonstrates no obvious signs or symptoms of labor and she has no evidence of infection either overtly or from her record which was negative for STDs. The situation seems most consistent with probable cervical incompetence. After delivery of the placenta, she was to be observed for several hours for stability and then deemed stable for discharge. She will be discharged home to follow-up in the office in 2 weeks for recheck. She was to call for any significantly increased bleeding or foul-smelling lochia indicating infection, fever, abdominal pain, or anything else that concerned her. She was instructed to have nothing in the vagina for several weeks to include intercourse. She understood her instructions and agrees to follow-up as noted above. Discharge medications included only [id number] analgesic pain medications. Maternal blood type is B- and she was to be given RhoGAM prior to discharge. Procedures: #1. Delivery of the placenta Patient Condition at Discharge: Stable Plan - Discharge Summary New Discharge Prescriptions: No Action Vit No.179/Iron/Folic [ Tablet] 1 tab PO DAILY Discharge Medication List Vit No.179/Iron/Folic [ Tablet] 1 tab PO DAILY 01/24/25 [History] Follow up Appointment(s)/Referral(s): Checo Chavez MD [STAFF PHYSICIAN] - 2 Weeks Discharge Disposition: HOME SELF-CARE
[2025-01-24 08:09] VITALS: BP 99/63; PULSE 70; RESP 18; TEMP 98.5
[2025-01-24] MEDS: Rhogam IMMUNE GLOBULIN 1,500 UNIT/1 ML IM ONE (13:01)
== END 2025-01-24 09:00 | disposition home or self-care (01) ==
LOC: 4FBP 04:08 → INTOOBSV 04:08
PROVIDERS: ADMIT Obstetrics & Gynecology; ATTEND Obstetrics & Gynecology
DX: O03.9 Complete or unspecified spontaneous abortion without complication (principal); O41.1220 Chorioamnionitis, second trimester, not applicable or unspecified; O99.332 Smoking (tobacco) complicating pregnancy, second trimester; F17.290 Nicotine dependence, other tobacco product, uncomplicated; Z3A.19 19 weeks gestation of pregnancy
CPT/HCPCS: 59414; 86900; 86901; 88305; 86850; 88300; G0378; G0379